=== PATIENT | female | born 1965 | race Caucasian/White ===

== ENCOUNTER → 2017-02-13 | Outpatient (CLI) | payer OTHER ==
--- NOTE | 2017-02-15 19:20 | RADIOLOGY REPORT PS360 ---
DIG MAMM-DX DANIEL W/AVWS W/CAD RIGHT BREAST ULTRASOUND WITH AXILLA LEFT BREAST ULTRASOUND WITH AXILLA COMPARISON: 01/29/2017 02/03/2015 INDICATION: Follow-up abnormal mammogram ORDERING PHYSICIAN: Galo Lyman MD PATIENT AGE: 52 years TECHNIQUE: Bilateral spot compression views MLO views and bilateral breast ultrasound FINDINGS: There is heterogeneously dense fibroglandular tissue. Right breast: Biopsy clip is present in the upper outer right breast. There is some asymmetric density in this region just medial to the clip on the CC spot compression view. There is a 8 mm cyst at this region on the ultrasound which may account for this nodule. The asymmetric density in the anterior aspect of the right breast does appear to compress out as fibroglandular tissue. Left breast: Asymmetric nodule present in the central aspect of the left breast appear to compress out on the spot compression views. There is some asymmetric density deep and lateral which is felt to be due to fibroglandular tissue. This does appear to compress out on the exiting cc view. Right breast ultrasound: Diffuse echodense fibroglandular tissue. There are multiple cysts present throughout the right breast including a 7 mm cyst at 5:00, 7 mm cyst at 10:00 and a 4 mm cyst at 10:00. There is a hypoechoic nodule at 9:00 measuring 9 mm which chest with low-level echoes with enhanced through transmission of sound may be due to cyst or fibroadenoma. Nonspecific hypoechoic areas noted at 9:00 at 3 mm. There is a 11 mm hypoechoic area at 3:00 probably related to fibroglandular tissue. No malignant appearing mass is evident. Left breast ultrasound: Echodense fibroglandular tissue noted Nonspecific area of decreased echogenicity at 4:00 probably related to fibroglandular tissue adjacent to a 4 mm cyst. 5 mm complex cyst at 4:00, small left axillary nodes. IMPRESSION: No convincing evidence of malignancy. Probably benign findings. BI-RADS CATEGORY: 3_Probably Benign-Short Term F/U RECOMMENDED FOLLOWUP: Bilateral 6 month mammographic and sonographic follow-up (A letter has been sent to the patient regarding results of the study.)
== END ==
LOC: RAD 11:52
DX: R92.8 Other abnormal and inconclusive findings on diagnostic imaging of breast (principal)
CPT/HCPCS: G0204